=== PATIENT | female | born 1950 | race Caucasian/White ===

== ENCOUNTER 2018-06-22 13:08 | Emergency (ER) | payer SELFPAY | END 2018-06-22 13:50 | disposition home or self-care (01) | LOC: MADERS 13:08 | DX: S29.011A Strain of muscle and tendon of front wall of thorax, initial encounter (principal); I10 Essential (primary) hypertension; Z86.73 Personal history of transient ischemic attack (TIA), and cerebral infarction without residual deficits; Z79.899 Other long term (current) drug therapy; Z79.82 Long term (current) use of aspirin; V49.9XXA Car occupant (driver) (passenger) injured in unspecified traffic accident, initial encounter | CPT/HCPCS: 99283; G0390 ==